=== PATIENT | female | born 1960 | race Caucasian/White ===

== ENCOUNTER 2017-11-13 10:03 | Emergency (ER) | payer OTHER ==
[~2017-11-13] VITALS: Ht 180.3 cm; Wt 129.7 kg
[~2017-11-13 10:03] MED LIST changes: -GABAPENTIN TAB600 MG PO
[2017-11-13] MEDS ORDERED: GABAPENTIN TAB600 MG PO (10:22)
== END 2017-11-13 11:58 | disposition home or self-care (01) ==
LOC: ED 10:03
DX: M54.32 Sciatica, left side (principal); Z79.899 Other long term (current) drug therapy

== ENCOUNTER → 2017-11-13 | Outpatient (CLI) | payer OTHER ==
[~2017-11-13] MED LIST: ATENOLOL50 MG PO; AUGMENTIN 875875 MG PO; DAYPRO600 M1 PO; GABAPENTIN TAB600 MG PO; LODINE200 MG PO; LODINE500 MG PO; LOSARTAN POTASS1 TA5; LYRICA100 MG PO; LYRICA200 MG PO; PERCOCET 325 MG1 TA2 PO; PRILOSEC20 MG PO; VENLAFAXINE150 MG PO; VICODIN 5/500 505 MG PO; VICODIN 500 MG-1 TAB PO
[2017-11-13 09:54] LABS: BASO # 0.1 10*3/uL (0.0-0.1); BASO % 0.9 % (0.0-1.0); EOS # 0.3 10*3/uL (0.0-0.4); EOS % 2.6 % (1.0-4.0); HEMATOCRIT 32.1 % (37.0-47.0); HEMOGLOBIN 10.1 g/dl (12.0-16.0); LYMPH # 1.8 10*3/uL (1.3-4.4); LYMPH % 16.9 % (27.0-41.0); MEAN CELL VOLUME 90.7 fl (81.0-99.0); MEAN CORPUSCULAR HGB 28.5 pg (27.0-31.0); MEAN CORPUSCULAR HGB CONC 31.5 g/dl (33.0-37.0); MEAN PLATELET VOLUME 9.1 fl (9.6-12.3); MONO # 0.7 10*3/uL (0.1-1.0); MONO % 6.4 % (3.0-9.0); NEUT # 7.7 10*3/uL (2.3-7.9); NEUT % 72.6 % (47.0-73.0); PLATELET COUNT AUTOMATED 576 10*3/uL (130-400); RED BLOOD COUNT 3.54 10*6/uL (4.10-5.10); RED CELL DISTRI WIDTH 14.4 % (0-14.5); WHITE BLOOD COUNT 10.6 10*3/uL (4.8-10.8)
[2017-11-13 10:17] LABS: ALBUMIN 2.5 gm/dl (3.1-4.5); CREATININE 1.29 mg/dL (0.55-1.02); POTASSIUM 4.1 mmol/L (3.5-5.1)
[2017-11-13 10:23] LABS: THYROID STIM HORMONE (HS) 3.63 uIU/ml (0.358-4.75)
== END | disposition home or self-care (01) ==
LOC: LAB 09:27
PROVIDERS: Registered Nurse Flight
DX: R53.83 Other fatigue (principal)

== ENCOUNTER → 2018-10-23 | Outpatient (CLI) | payer BC ==
[~2018-10-23] MED LIST changes: +GABAPENTIN TAB600 MG PO
[2018-10-23 12:39] LABS: BASO % 0.1 % (0.0-1.0); HEMATOCRIT 36.4 % (37.0-47.0); HEMOGLOBIN 11.3 g/dl (12.0-16.0); LYMPH # 2.3 10*3/uL (1.3-4.4); LYMPH % 16.3 % (27.0-41.0); MEAN CELL VOLUME 90.3 fl (81.0-99.0); MEAN PLATELET VOLUME 9.9 fl (9.6-12.3); MONO # 0.8 10*3/uL (0.1-1.0); MONO % 5.4 % (3.0-9.0); NEUT # 11.1 10*3/uL (2.3-7.9); PLATELET COUNT AUTOMATED 280 10*3/uL (130-400); RED BLOOD COUNT 4.03 10*6/uL (4.10-5.10); RED CELL DISTRI WIDTH 14.8 % (0-14.5); WHITE BLOOD COUNT 14.2 10*3/uL (4.8-10.8)
[2018-10-23 13:04] LABS: ALBUMIN 3.2 gm/dl (3.1-4.5); CREATININE 1.49 mg/dL (0.55-1.02); TOTAL PROTEIN 7.4 gm/dL (6.4-8.2)
== END | disposition home or self-care (01) ==
LOC: LAB 11:41
PROVIDERS: Registered Nurse Flight
DX: R05 Cough (principal); R09.89 Other specified symptoms and signs involving the circulatory and respiratory systems; R06.02 Shortness of breath; R50.9 Fever, unspecified; R52 Pain, unspecified; R53.1 Weakness; I10 Essential (primary) hypertension

== ENCOUNTER → 2023-11-20 | Outpatient (CLI) | payer MEDICARE ==
[2023-11-20 13:21] LABS: POTASSIUM 3.5 mmol/L (3.4-5.1); TOTAL PROTEIN 7.5 gm/dL (6.0-8.0)
== END | disposition home or self-care (01) ==
LOC: LAB 12:03
PROVIDERS: ATTEND Nurse Practitioner Family
DX: E86.0 Dehydration (principal)